=== PATIENT | female | born 1990 | race Caucasian/White ===

== ENCOUNTER 2022-06-09 18:36 | Emergency (ER) | payer OTHER, MEDICAID, SELFPAY ==
[2022-06-09 20:15] VITALS: BP 141/89; PULSE 84; RESP 18; TEMP 36.7; O2SAT 99; BMI 31.4
[2022-06-09 20:45] LABS: UTC Influenza A Antigen Negative (Negative); UTC Strep Screen (Rapid) Negative (Negative)
[2022-06-09 20:46] LABS: UTC Influenza B Antigen Negative (Negative)
--- NOTE | 2022-06-09 20:46 | EXP.UTC ---
Discharge Plan Disposition Patient Disposition: Home, Self-Care Condition: Good Prescriptions Prescriptions: New azithromycin [Zithromax Z-Crow] 250 mg tablet See Rx Instructions .ROUTE .COMPLEX 5 Days Qty: 6 0RF Rx Instructions: For 250 mg dose pack: take 500 mg today (day 1), then 250 mg for 4 days (days 2-5) methylprednisolone [Medrol (Crow)] 4 mg tablets,dose pack See Rx Instructions .Route .COMPLEX 6 Days Qty: 21 0RF Rx Instructions: taper pack; No Action sumatriptan succinate 50 mg tablet 50 mg PO DAILYP PRN (Reason: Headache) Label Comments: TAKE 1 TABLET BY MOUTH ONCE NEEDED (HEADACHE) FOR UP TO 1 DOSE. medroxyprogesterone 150 mg/mL syringe 150 mg IM ONCE Label Comments: INJECT 1 ML INTRAMUSCULARLY ONCE EVERY 3 MONTHS. topiramate 50 mg tablet 50 mg PO BID Label Comments: TAKE 1 TABLET BY MOUTH 2 TIMES DAILY. Eliquis 5 mg tablet 5 mg PO DAILY Label Comments: TAKE 1 TABLET BY MOUTH 2 TIMES DAILY. Referrals Follow up/Referrals: Raquel Recinos APRN [Primary Care Provider] - See instructions Activity Restrictions/Add. Instructions Additional Instructions/Restrictions: *Monitor Temp, Over the counter Motrin or Tylenol as directed/as needed Tylenol every 4 hours and Motrin every 6 hours (as long as your family doctor has told you that you can take it) for fever or pain. and straight to ER if unable to lower temp less than 101.0 after medication given *Warm salt water gargles may help to soothe the throat *Throat Lozenges? *Warm fluids like tea with honey may help to soothe the throat? *Sleep elevated *Humidifier/Vaporizer Your throat swab was sent for culture. Those results are typically sent to your primary care. Be sure to follow up in 2-3 days with your family doctor/primary care physician if no improvement so they can review those result and treat if necessary. If you don?t have a primary care doctor, I recommend you get one but in the mean time, you will have to return to a walk in clinic Follow up IMMEDIATELY for new or worsening symptoms or no Noticeable improvement over the next 48-72 hours. 911 for difficulty breathing or swallowing Clinical Impressions Clinical Impression: Sinusitis Stand Alone Forms Stand Alone Forms: Work/School Release Instructions Patient Instructions: DI for Sinusitis, Sinusitis Discharge ED Provider: Lola Lemus [facility] [place] HPI General Stated complaint: congestion Mode of Arrival: Ambulatory Source of Information: Patient Limitations: No Limitations Time Seen by Provider: 06/09/22 20:46 Description of Symptoms (Recalled from Triage Doc. by RN): PATIENT C/O BODY ACHES, SORE THROAT, CONGESTION AND COUGH X 2 DAYS. EXPOSED TO FLU HEENT Symptoms (Recalled from RN notes): Yes Resp Symptoms (Recalled from RN notes): No Skin Symptoms (Recalled from RN notes): No MS Symptoms (Recalled from RN notes): No Functional Status (Recalled from RN notes): WNL History of Present Illness Provider Complaint: Patient state that she has been having sinus congestion, cough for about a week State that she was around someone over the weekend that had the flu and since then her symptoms got worse States that she is having sore throat, sinus congestion and pressure and body aches for the last couple of days so tonight when she was still not feeling well she came in Related Data Home Medications Medication Instructions Recorded Confirmed apixaban 5 mg tablet (Eliquis) 5 mg PO DAILY BLOOD CLOTS 06/09/22 06/09/22 medroxyprogesterone 150 mg/mL 150 mg IM ONCE control 06/09/22 06/09/22 intramuscular syringe sumatriptan succinate 50 mg tablet 50 mg PO DAILYP PRN Headache 06/09/22 06/09/22 topiramate 50 mg tablet 50 mg PO BID Headache 06/09/22 06/09/22 Previous Rx's Medication Instructions Recorded azithromycin 250 mg tablet See Rx Instructions PO .COMPLEX 5 06/09/22 (Zithromax Z-
[2022-06-09 20:57] VITALS: BP 141/89; PULSE 84; RESP 18; TEMP 36.7; O2SAT 99
== END 2022-06-09 21:02 | disposition home or self-care (01) ==
PROVIDERS: Emergency Provider Nurse Practitioner; PCP Nurse Practitioner
DX: J32.9 Chronic sinusitis, unspecified (principal)
CPT/HCPCS: 87804; 87880; 99212; G0463

== ENCOUNTER 2023-07-13 11:56 | Emergency (ER) | payer OTHER, MEDICAID, SELFPAY ==
[2023-07-13 12:43] VITALS: BP 132/93; PULSE 82; RESP 18; TEMP 36.9; O2SAT 100; BMI 32.5
[2023-07-13 12:51] LABS: UTC Strep Screen (Rapid) Negative (Negative)
--- NOTE | 2023-07-13 13:46 | EXP.UTC ---
Discharge Plan Disposition Patient Disposition: Home, Self-Care Condition: Good Prescriptions Prescriptions: New azithromycin [azithromycin] 250 mg tablet 250 mg PO DIRECTED Qty: 6 0RF Rx Instructions: Take two (2) tablets on day #1, then one (1) tablet day #2 thru #5 No Action Ubrelvy 100 mg tablet 100 mg PO NEEDED PRN (Reason: Migraine Headache) medroxyprogesterone 150 mg/mL syringe 150 mg IM ONCE Patient Comments: INJECT 1 ML INTRAMUSCULARLY ONCE EVERY 3 MONTHS. topiramate 50 mg tablet 50 mg PO BID Patient Comments: TAKE 1 TABLET BY MOUTH 2 TIMES DAILY. Eliquis 5 mg tablet 5 mg PO DAILY Patient Comments: TAKE 1 TABLET BY MOUTH 2 TIMES DAILY. Referrals Follow up/Referrals: Raquel Recinos APRN [Primary Care Provider] - See instructions Activity Restrictions/Add. Instructions Additional Instructions/Restrictions: Start antibiotics today be sure to take it as ordered with the full length of time although you should start feeling better in 24-48 hours. Change toothbrush and toothpaste 24-48 hours after starting antibiotics Tylenol or Motrin as needed for fever or pain Encourage fluids, water, Gatorade, Powerade, try cold fluids, popsicles, ice cream will make it feel better You are contagious for 24 hours. Avoid kissing anyone, no eating or drinking after anyone. You are contagious. Follow-up the ER for new or worsening symptoms or no noticeable improvement over the next 24-48 hours. Follow-up with PCP this week. Clinical Impressions Clinical Impression: Strep sore throat Instructions Patient Instructions: DI for Strep Throat Discharge ED Provider: See ([facility] [place] HPI General Stated complaint: Pain in L ear, sore throat Mode of Arrival: Ambulatory Source of Information: Patient Limitations: No Limitations Time Seen by Provider: 07/13/23 13:46 Description of Symptoms (Recalled from Triage Doc. by RN): left ear pain, sore throat, and swollen lymph nodes HEENT Symptoms (Recalled from RN notes): Yes Resp Symptoms (Recalled from RN notes): No Skin Symptoms (Recalled from RN notes): No MS Symptoms (Recalled from RN notes): No Functional Status (Recalled from RN notes): n/a History of Present Illness Provider Complaint: 33 yr old female presents for left ear pain, sore throat, and swollen lymph nodes Related Data Home Medications Medication Instructions Recorded Confirmed apixaban 5 mg tablet (Eliquis) 5 mg PO DAILY BLOOD CLOTS 06/09/22 07/13/23 medroxyprogesterone 150 mg/mL 150 mg IM ONCE control 06/09/22 07/13/23 intramuscular syringe topiramate 50 mg tablet 50 mg PO BID Headache 06/09/22 07/13/23 ubrogepant 100 mg tablet (Ubrelvy) 100 mg PO NEEDED PRN Migraine 07/13/23 07/13/23 Headache Previous Rx's Medication Instructions Recorded azithromycin 250 mg tablet 250 mg PO DIRECTED #6 tabs 07/13/23 Allergies Allergy/AdvReac Type Severity Reaction Status Date / Time buspirone [From BuSpar] Allergy Severe Hives Verified 07/13/23 12:56 bupropion [From Wellbutrin] Allergy Verified 07/13/23 12:56 Worker's Comp Is this a Worker's Comp case?: No [facility] Disclaimer: The information contained in this section may have been updated after the patient was seen, as this information can be updated by other users. 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) Smoking Status: Current every day smoker alcohol intake: current substance use type: denies use current occupational status: employed Travel in the last 8 weeks: None household members: family housing: house ROS Obtained: Yes All systems reviewed & no additional complaints except as documented Constitutional Constitutional: Reports system reviewed and no additional complaints, except as documented Eyes Eyes: Reports system reviewed and no additional complaints, except as documented ENT Ears, Nose, Mouth, and Throat: Reports system reviewed and no additional complaints, except as documented, Reports as per HPI, Reports otalgia, Reports nasal congestion and Reports sore throat Cardiovascular Cardiovascular: Reports system reviewed and no additional complaints, except as documented Respiratory Respiratory: Reports system reviewed and no additional complaints, except as documented, Reports as per HPI and Reports cough Integumentary/Breasts Skin/Breast: Reports system reviewed and no additional complaints, except as documented Neurologic Neurologic: Reports system reviewed and no additional complaints, except as documented Endocrine Endocrine: Reports system reviewed and no additional complaints, except as documented Hematologic/Lymphatic Henatologic/Lymphatic: Reports system reviewed and no additional complaints, except as documented Physical Exam General General appearance: alert and in no apparent distress Head Head exam: atraumatic Eye Eye exam: Present normal appearance and PERRL ENT ENT exam: Present mucous membranes moist and TM's normal bilaterally Expanded ENT Exam Throat exam: Present tonsillar erythema, tonsillomegaly and tonsillar exudate Respiratory Respiratory exam: Present normal lung sounds bilaterally Cardiovascular Cardiovascular exam: Present regular rate and normal rhythm Neurological Exam Neurological exam: Present alert and oriented X3 Medical Decision Making Medical Records Medical records reviewed: Yes I reviewed the patient's medical records. Eric Inquiry Pt receiving controlled substance: No Eric was queried for this patient: No Vital Signs: 07/13/23 12:43 Temperature 98.4 F Temperature Source Oral Pulse Rate [Right Radial] 82 Respiratory Rate 18 Blood Pressure [Right Arm] 132/93 H Blood Pressure Mean [Right Arm] 106 Blood Pressure Source [Right Arm] Automatic Cuff Blood Pressure Position [Right Arm] Sitting 02 Sat by Pulse Oximetry 100 Oxygen Delivery Method Room Air Lab Data Lab results reviewed: Yes I reviewed the patient's lab results. Lab Results 07/13/23 12:50: Strep Scn Rapid Clinic Negative Orders (Tests/Meds): ORDERS Category Date Time Status Strep Screen Confirmation Stat Micro 07/13/23 12:50 Received
[2023-07-13 13:53] VITALS: BP 132/93; PULSE 82; RESP 18; TEMP 36.9; O2SAT 100
== END 2023-07-13 13:53 | disposition home or self-care (01) ==
PROVIDERS: Emergency Provider Nurse Practitioner Family; PCP Nurse Practitioner
DX: J02.0 Streptococcal pharyngitis (principal); R07.0 Pain in throat; H92.02 Otalgia, left ear; F17.210 Nicotine dependence, cigarettes, uncomplicated
CPT/HCPCS: 87880; 99212; 99214; G0463

== ENCOUNTER 2024-02-20 15:28 | Emergency (ER) | payer OTHER, MEDICAID, SELFPAY ==
[2024-02-20 15:40] VITALS: BP 152/100; PULSE 89; RESP 20; TEMP 36.7; O2SAT 100; BMI 33.7
--- NOTE | 2024-02-20 15:50 | ED_ITS ---
Discharge Plan Disposition Patient Disposition: Home, Self-Care Condition: Good Prescriptions Prescriptions: New valacyclovir 1 gram tablet 1,000 mg PO TID 7 Days Qty: 21 0RF No Action Ubrelvy 100 mg tablet 100 mg PO NEEDED PRN (Reason: Migraine Headache) medroxyprogesterone 150 mg/mL syringe 150 mg IM ONCE Patient Comments: INJECT 1 ML INTRAMUSCULARLY ONCE EVERY 3 MONTHS. topiramate 50 mg tablet 50 mg PO BID Patient Comments: TAKE 1 TABLET BY MOUTH 2 TIMES DAILY. Eliquis 5 mg tablet 5 mg PO DAILY Patient Comments: TAKE 1 TABLET BY MOUTH 2 TIMES DAILY. Referrals Follow up/Referrals: Raquel Recinos APRN [Primary Care Provider] - See instructions Activity Restrictions/Add. Instructions Additional Instructions/Restrictions: Take medication as prescribed Make appointment with Eye Doctor for exam due to close proximety to eye Follow up with your Family Doctor if no improvement Return if needed Straight to ER if any life threateing symptoms Clinical Impressions Clinical Impression: Shingles Stand Alone Forms Stand Alone Forms: Work/School Release Instructions Patient Instructions: Melissa DI for Shingles, Valacyclovir Print Language Print Language: Bengali Discharge ED Provider: Lola Lemus [facility] [place] H[place] General Stated complaint: discolored spot on forehead/burning into eyes Mode of Arrival: Ambulatory Source of Information: Patient Limitations: No Limitations Time Seen by Provider: 02/20/24 15:50 Description of Symptoms (Recalled from Triage Doc. by RN): PATIENT C/O RASH TO FOREHEAD, LEFT EYE LID, AND NOSE THAT DE JESUS AND ITCHES THAT STARTED TUESDAY. PATIENT ALSO C/O LEFT EAR PAIN HEENT Symptoms (Recalled from RN notes): Yes Resp Symptoms (Recalled from RN notes): No Skin Symptoms (Recalled from RN notes): Yes MS Symptoms (Recalled from RN notes): No Functional Status (Recalled from RN notes): WNL History of Present Illness Provider Complaint: Patient states that she noticed rash like bumps on her forehead, left eyebrow area and on her nose States that rash itches and de jesus States that also she has been having pain in her left ear not sure if they may be related Related Data Home Medications ?Medication ?Instructions ?Recorded ?Confirmed apixaban 5 mg tablet (Eliquis) 5 mg PO DAILY BLOOD CLOTS 11/30/22 08/12/24 medroxyprogesterone 150 mg/mL 150 mg IM ONCE control 06/09/22 02/20/24 intramuscular syringe topiramate 50 mg tablet 50 mg PO BID Headache 06/09/22 02/20/24 ubrogepant 100 mg tablet (Ubrelvy) 100 mg PO NEEDED PRN Migraine 07/13/23 02/20/24 Headache Previous Rx's ?Medication ?Instructions ?Recorded valacyclovir 1 gram tablet 1,000 mg PO TID 7 days #21 tabs 02/20/24 Allergies Allergy/AdvReac Type Severity Reaction Status Date / Time buspirone [From BuSpar] Allergy Severe Hives Verified 07/13/23 12:56 bupropion [From Wellbutrin] Allergy Verified 07/13/23 12:56 Worker's Comp Is this a Worker's Comp case?: No [facility] Disclaimer: The information contained in this section may have been updated after the patient was seen, as this information can be updated by other users. 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) Smoking Status: Current every day smoker alcohol intake: current alcohol intake frequency: holidays/special occasions only substance use type: denies use current occupational status: employed Travel in the last 8 weeks: None household members: family housing: house ROS Obtained: Yes All systems reviewed & no additional complaints except as documented and Yes Systems reviewed as appropriate & no additional complaints except as documented Constitutional Constitutional: Reports system reviewed and no additional complaints, except as documented and Reports as per HPI ENT Ears, Nose, Mouth, and Throat: Reports system reviewed and no additional complaints, except as documented, Reports as per HPI and Reports otalgia Cardiovascular Cardiovascular: Reports system reviewed and no additional complaints, except as documented and Reports as per HPI Respiratory Respiratory: Reports system reviewed and no additional complaints, except as documented and Reports as per HPI Gastrointestinal Gastrointestingal: Reports system reviewed and no additional complaints, except as documented and as per HPI Integumentary/Breasts Skin/Breast: Reports system reviewed and no additional complaints, except as documented, Reports as per HPI, Reports pruritus and Reports rash Neurologic Neurologic: Reports system reviewed and no additional complaints, except as documented and Reports as per HPI Physical Exam General General appearance: alert and in no apparent distress ENT ENT exam: Present mucous membranes moist and TM's normal bilaterally Respiratory Respiratory exam: Present normal lung sounds bilaterally; Absent respiratory distress or wheezes Cardiovascular Cardiovascular exam: Present regular rate, normal rhythm and normal heart sounds Neurological Exam Neurological exam: Present alert, oriented X3 and normal gait Skin Skin exam: Present rash (rash noted to forehead, left eye brow area and on nose appears like shingles rash reports de jesus and itches, denies eye pain at this time) Medical Decision Making Eric Inquiry Pt receiving controlled substance: No Eric was queried for this patient: No Vital Signs: 02/20/24 15:40 Temperature 98.1 F Temperature Source Oral Pulse Rate [Left Brachial] 89 Respiratory Rate 20 Blood Pressure [Left Arm] 152/100 H Blood Pressure Mean [Left Arm] 117 Blood Pressure Source [Left Arm] Automatic Cuff Blood Pressure Position [Left Arm] Sitting 02 Sat by Pulse Oximetry 100 Oxygen Delivery Method Room Air
[2024-02-20 16:00] VITALS: BP 152/100; PULSE 89; RESP 20; TEMP 36.7; O2SAT 100
== END 2024-02-20 16:04 | disposition home or self-care (01) ==
PROVIDERS: Emergency Provider Nurse Practitioner; PCP Nurse Practitioner
DX: B02.9 Zoster without complications (principal); H92.02 Otalgia, left ear; F17.210 Nicotine dependence, cigarettes, uncomplicated; I10 Essential (primary) hypertension; F32.A Depression, unspecified; F41.9 Anxiety disorder, unspecified
CPT/HCPCS: 99212; 99214; G0463